=== PATIENT | male | born 1970 | race Caucasian/White ===

== ENCOUNTER 2022-10-18 13:03 | Emergency (ER) | payer MEDICARE, MEDICAID, SELFPAY ==
--- NOTE | ~2022-10-18 | XR_ITS ---
EXAMINATION: XR thoracic spine 3V DATE: 10/18/2022 13:55 INDICATION: Back injury. Fall down stairs. TECHNIQUE: 3 views of thoracic spine were obtained. COMPARISON: None. FINDINGS: There is 10 degrees levoscoliosis of upper thoracic spine. Vertebral body heights and inter vertebral disc heights are normal. There are changes of anterior fusion procedure at C7-T1. Epidural electrodes are noted. IMPRESSION: 1. Upper thoracic levoscoliosis. 2. Anterior fusion procedure at C7-T1. Reviewed, dictated and finalized at location A.
[2022-10-18 13:15] VITALS: BP 143/89; PULSE 104; RESP 20; TEMP 36.8; O2SAT 98
--- NOTE | 2022-10-18 13:44 | ED.GENADULT ---
HPI - General Adult General Chief complaint: Unspecified Stated complaint: Shortness of Breath Time Seen by Provider: 10/18/22 13:45 Source: patient, RN notes reviewed and old records reviewed Mode of arrival: ambulatory Limitations: no limitations History of Present Illness HPI narrative: 52 year old male who presents to [facility] care with complaints of increased shortness of breath for the past 2 weeks with known history of COPD. Patient reports that he quit smoking in 2011 but resumed tobacco use of 1/2 ppd of cigarettes in May of this year. Patient reports that 2 nights ago he went down 4 steps was dizzy then he fell the rest of the way down remaining 3--4 steps landing on his elbows and knees, with complaints of increased thoracic back pain, denies any LOC or hitting head at time of fall. Patient has had cervical fusion in the past. Patient reports that he was seen in the emergency room about one month ago with steroid shot and also breathing treatment and some medications and his symptoms resolved but his symptoms increased this past 2 weeks with no fevers chills or sweats. MD complaint: decreased dyspnea for 2 weeks Onset (ago): day(s) (2 days ago fell down steps) Location: back (thoracic) Radiation: non-radiation Severity: moderate Severity scale (1-10): 6 Treatments prior to arrival: other (used his inhalers as ordered) Related Data Home Medications Medication Instructions Recorded Confirmed albuterol sulfate 90 mcg/actuation inh inhalation DIRECTED 10/18/22 aerosol inhaler (Ventolin HFA) atorvastatin 20 mg tablet 20 mg PO DIRECTED 10/18/22 10/18/22 baclofen 20 mg tablet 20 mg PO DIRECTED 10/18/22 10/18/22 gabapentin 300 mg capsule 300 mg PO DIRECTED 10/18/22 10/18/22 lisinopril 10 mg tablet 10 mg PO DIRECTED 10/18/22 10/18/22 umeclidinium 62.5 mcg-vilanterol 1 ea inhalation DIRECTED 10/18/22 10/18/22 25 mcg/actuation powdr for inhalation (Anoro Ellipta) Allergies Allergy/AdvReac Type Severity Reaction Status Date / Time No Known Allergies Allergy Verified 10/18/22 13:36 Review of Systems Review of Systems: CONSTITUTIONAL: Denies fever, chills, or sweats. EYES: Denies visual changes, redness, or discharge. ENT: Denies rhinorrhea, congestion, sore throat, or otalgia. CARDIOVASCULAR: Denies chest pain, palpitations, or edema. RESPIRATORY: Reports cough or dyspnea with minimal exertion history of copd GASTROINTESTINAL: Denies abdominal pain, nausea, vomiting, or diarrhea. GENITOURINARY: Denies dysuria or hematuria. SKIN: Denies rash or itching. MUSCULOSKELETAL: Reports thoracic back pain, joint pain, or myalgia. NEUROLOGIC: Denies headache, numbness, or weakness. PSYCHIATRIC: Denies anxiety or depression. All systems reviewed & are unremarkable except as noted in HPI and below PMFSH Past Medical History Medical History (Updated 10/18/22 @ 20:16 by Katie Roger NP) COPD (chronic obstructive pulmonary disease) Dystonia Elevated cholesterol Hypertension Spinal cord stimulator status Surgical History Surgical History (Updated 10/18/22 @ 20:01 by Katie Roger NP) History of bilateral carpal tunnel release S/P cervical spinal fusion Social History Social History (Updated 10/18/22 @ 19:58 by Katie Roger NP) Smoking packs per day: 0.5 Smoking cigarettes per day: 10.0 Smoking status: Current every day smoker Tobacco type: cigarettes Alcohol intake: former Alcohol use details: no alcohol for 10 years Substance use type: does not use Living arrangements: with family Gender identity (if verbalized by the patient): Male Comments At time of signature, agree with nursing past medical, surgical, social and family history. There is no relevant family history pertinent to the presenting complaint Exam Narrative: GENERAL: Well-appearing, well-nourished, and in no acute distress. HEAD: Normocephalic, atraumatic. EYES: PERRLA and EOMI. ENT:
== END 2022-10-18 14:30 | disposition home or self-care (01) ==
PROVIDERS: Emergency Provider Registered Nurse; PCP Internal Medicine
DX: J44.1 Chronic obstructive pulmonary disease with (acute) exacerbation (principal); M54.6 Pain in thoracic spine; F17.210 Nicotine dependence, cigarettes, uncomplicated; E78.00 Pure hypercholesterolemia, unspecified; I10 Essential (primary) hypertension; Z96.82 Presence of neurostimulator
CPT/HCPCS: 72072; 81003; 99203; G0463

== ENCOUNTER 2023-11-12 19:18 | Emergency (ER) | payer MEDICARE, MEDICAID, SELFPAY ==
[2023-11-12 19:26] VITALS: BP 155/79; PULSE 63; RESP 20; TEMP 37.1; O2SAT 100
[2023-11-12 19:38] VITALS: BP 155/79; PULSE 63; RESP 20; TEMP 37.1; O2SAT 100
--- NOTE | 2023-11-12 19:44 | ED.SKABFB ---
HPI - Skin/Abscess/Foreign Bdy General Chief complaint: Skin/Abscess/Foreign Body Stated complaint: Right Foot Puncture Wound Time Seen by Provider: 11/12/23 19:31 Source: patient, RN notes reviewed and old records reviewed Mode of arrival: ambulatory Limitations: no limitations History of Present Illness HPI narrative: 53-year-old male to [facility] for complaint puncture wound to right plantar foot. Patient states that he stepped on a tej nail at approximately 1:00 p.m. today. Patient states that he was initially going to be seen recalled that he is not up-to-date on his tetanus shot. Patient endorses mild discomfort with weight-bearing. No active bleeding. Patient has attempted to treat wound at home. Patient denies numbness, tingling, weakness in foot or pertinent medical history. Patient hypertensive in triage. Patient resting in exam room comfortably. Respirations even and nonlabored. Patient in no acute distress. Related Data Home Medications Medication Instructions Recorded Confirmed albuterol sulfate 90 mcg/actuation 2 inh inhalation DIRECTED PRN 10/18/22 11/12/23 aerosol inhaler (Ventolin HFA) Wheezing atorvastatin 20 mg tablet 20 mg PO DIRECTED 10/18/22 11/12/23 baclofen 20 mg tablet 20 mg PO DIRECTED 10/18/22 11/12/23 gabapentin 300 mg capsule 300 mg PO DIRECTED 10/18/22 11/12/23 umeclidinium 62.5 mcg-vilanterol 1 ea inhalation DIRECTED 10/18/22 11/12/23 25 mcg/actuation powdr for inhalation (Anoro Ellipta) Allergies Allergy/AdvReac Type Severity Reaction Status Date / Time tramadol Allergy Vomiting Verified 11/12/23 19:36 Review of Systems Review of Systems: All systems reviewed & are unremarkable except as noted in HPI and below Constitutional: Constitutional: Reports no additional constitutional complaints Eyes: Eyes: Reports no additional eye complaints ENT: Reports system reviewed and no additional complaints, except as documented Cardiovascular: Cardiovascular: Reports no additional cardiovascular complaints, Denies chest pain and Denies dyspnea Respiratory: Respiratory: Reports no additional respiratory complaints, Denies cough and Denies dyspnea Musculoskeletal: Musculoskeletal: Reports no additional musculoskeletal complaints Integumentary/Breasts: Skin/Breast: Reports as per HPI and Reports wounds ( Puncture wound right plantar foot) Neurologic: Reports system reviewed and no additional complaints, except as documented Psychiatric: Psychiatric: Reports no additional psychiatric complaints PMFSH Past Medical History Medical History COPD (chronic obstructive pulmonary disease) Dystonia Elevated cholesterol Hypertension Spinal cord stimulator status Surgical History Surgical History History of bilateral carpal tunnel release S/P cervical spinal fusion Social History Social History Smoking packs per day: 0.5 Smoking cigarettes per day: 10.0 Smoking status: Current every day smoker Tobacco type: cigarettes Alcohol intake: former Alcohol use details: no alcohol for 10 years Substance use type: does not use Living arrangements: with family Gender identity (if verbalized by the patient): Male Comments At the time of my signature, I reviewed and agree with the nursing past medical, surgical, social, and family history. There is no relevant family history pertinent to the patient complaint. Exam Const: General: cooperative, comfortable, no acute distress, alert, awake, poor hygiene, tired appearing and well nourished Nutritional Appearance: well nourished Orientation/consciousness: patient oriented x3 Limitations: no limitations HENMT: Head: normal to inspection Ears: external ears normal Face/Nose/Sinus: Normal external nose present, Normal nares pre
[2023-11-12] MEDS: TETANUS,DIPHTHERIA,AC PERTUSSIS ADULT (0.5 ML) BOOSTRIX IM (19:46)
== END 2023-11-12 19:58 | disposition home or self-care (01) ==
PROVIDERS: Emergency Provider Nurse Practitioner Family; PCP Internal Medicine
DX: S91.331A Puncture wound without foreign body, right foot, initial encounter (principal); W45.0XXA Nail entering through skin, initial encounter; Z23 Encounter for immunization; I10 Essential (primary) hypertension; F17.210 Nicotine dependence, cigarettes, uncomplicated; J44.9 Chronic obstructive pulmonary disease, unspecified; E78.00 Pure hypercholesterolemia, unspecified; Z96.82 Presence of neurostimulator
CPT/HCPCS: 90471; 90715; 99213; G0463

== ENCOUNTER 2024-08-20 19:35 | Emergency (ER) | payer MEDICARE, MEDICAID, SELFPAY ==
--- OUTSIDE RECORDS SUMMARY | 2024-08-20 19:38 | XMS_ITS | Clinical Summary ---
Author Organization [facility] Address [address] [address] Care Team Providers Care Silk Screen Operator Name Role Phone José Antonio Knapp MD Primary Care Provider [phone] Source Comments [facility],non-owned Affiliates and Associated Physician Practices is amultiple site organization consisting of ambulatory clinics and hospital sitesin [place], [place], [place] and [place]. This disclosure is being madepursuant to the Care Everywhere program and may not contain all information available regarding this patient. Last updated 17.[facility] Allergies Active Allergy Reactions Criticality Noted Date Comments Tramadol Vomiting High 10/10/2018 Medications * Be aware that medications may not be up to date on this document. Alwaysverify current medications with the patient. gabapentin (NEURONTIN) 300 MG capsule Take 900 mg by mouth 3 times daily 1 Active REXULTI 3 MG tablet 2 mg once daily 1 Active lisinopril (PRINIVIL; ZESTRIL) 10 MG tablet Take 1 tablet by mouth once daily 1 Active baclofen (LIORESAL) 20 MG tablet Take 20 mg by mouth 4 times daily 1 Active omeprazole (PRILOSEC) 40 MG capsule Take 40 mg by mouth once daily 1 Active sertraline (ZOLOFT) 100 MG tablet 100 mg 2 times daily 1 Active fluticasone propionate (FLONASE) 50 MCG/ACT nasal spray 1-2 SPRAYS BY NASAL ROUTE DAILY. USE IN EACH NOSTRIL DIRECTED. 0 Active budesonide-form oterol (SYMBICORT) 160-4.5 MCG/ACT inhaler TAKE 2 PUFFS BY MOUTH 2 TIMES DAILY. 1 Active albuterol HFA (VENTOLIN HFA) 108 (90 Base) MCG/ACT inhaler TAKE 2 PUFFS BY INHALATION EVERY 4 HOURS NEEDED FOR WHEEZING. 1 Active OXcarbazepine (TRILEPTAL) 600 MG tablet Take 1 tablet by mouth 2 times daily 2 Active atorvastatin (LIPITOR) 20 MG tablet Take 20 mg by mouth once daily 2 Active cyclobenzaprine (FLEXERIL) 10 MG tabletIndicatio ns:Chronic bilateral low back pain without sciatica Take 1 (one) tablet by mouth 3 times daily as needed for Muscle Spasms 60 tablet 1 2 Active Active Problems Problem Noted Date Diagnosed Date Chronic pain disorder 03/23/2015 Failed back surgical syndrome Social History Tobacco Use Types Packs/Day Years Used Date Smoking Tobacco: Former Smokeless Tobacco: Never Tobacco Cessation:Counseling Given: No Alcohol Use Standard Drinks/Week Comments Never 0 (1 standard drink = 0.6 oz pur e alcohol) Sex and Gender Information Value Date Recorded Sex Assigned at Not on file Legal Sex Male 10:33 AM CDT Gender Identity Not on file Sexual Orientation Not on file Last Filed Vital Signs Vital Sign Reading Time Taken Comments Blood Pressure 138/97 06/20/2021 11:40 AM CDT Pulse 76 06/20/2021 11:40 AM CDT Temperature 36.3 C (97.3 F) 06/20/2021 11:40 AM CDT Respiratory Rate 18 05/06/2021 10:53 AM ANALYST PROGRAMMER Oxygen Saturation 100% 06/20/2021 11:40 AM CDT Inhaled Oxygen Concentration - - Weight 102.1 kg (225 lb) 06/20/2021 11:40 AM CDT Height 182.9 cm (6') 06/20/2021 11:40 AM CDT Body Mass Index 30.52 06/20/2021 11:40 AM CDT Plan of Treatment Health Maintenance Due Date Last Done Comments COLOGUARD (AGES 45-75) - COLON CA SCREENING 1970 COLON MONITORING 1970 COLONOSCOPY - COLON CA SCREENING 1970 CT COLONOGRAPHY - COLON CA SCREENING 1970 Colorectal Cancer Screening 1970 FIT - COLON CA SCREENING 1970 FLEX SIG - COLON CA SCREENING 1970 MEDICARE AWV 12 MONTHS 1970 HIV SCREENING 1985 HEPATITIS C SCREENING 05/26/1988 DTAP/TDAP/TD VACCINES (1 - Tdap) 1989 HEPATITIS B VACCINE (1 of 3 - 19+ 3-dose series) 1989 PNEUMOCOCCAL VACCINE 50+ (1 of 1 - PCV) 2020 ZOSTER VACCINE (1 of 2) 2020 COVID-19 VACCINE (3 - season) 2023 02/16/2021, 06/07/2020 DEPRESSION SCREENING 04/02/2024 SCREENING FOR DIABETES 04/21/2024 , 04/21/2021, 03/24/2021 INFLUENZA VACCINE (Season Ended) 2024 02/16/2021, 01/13/2020, 01/16/2019, Additional history exists HIB VACCINE Aged Out No longer eligi ble based on patient's age to complete this topic HPV VACCINE Aged Out No longer eligi ble based on patient's age to complete this topic MENINGOCOCCAL (Group B) VACCINE SHARED DECISION-MAKING Aged Out No longer eligible based on patient's age to complete this topic MENINGOCOCCAL GROUPS A/C/Y/W VACCINE Aged Out No longer eligible based on patient's age to complete this topic Medical Devices Implanted Type Area Manager Book Device Identifier Shelf Expiration Date Model / Serial / Lot Lead Ns 65cm Spc Surescan 3 Clmn 16 Implanted:Qty: 1 on 04/21/2021 by Oscar Caruso MD at [facility] Back [employer] 08/27/2024 [id number] / / [id number] Kit Acc .133in Injex Yumiko Baso4 Biwing Implanted:Qty: 1 on 04/21/2021 by Oscar Caruso MD at [facility] Left: Back [employer] Neurological 06/27/2022 [id number] / / [id number] Nrstm Impl Chrnc Pain Rs2 - [id number] Implanted:Qty: 1 on 04/21/2021 by Oscar Caruso MD at [facility] Left: Back [employer] Inc [id number] / [id number] / Slnt Dura Duraseal Pg Trilysine Amine 5 Implanted:Qty: 1 on 04/21/2021 by Oscar Caruso MD at [facility] Back [employer] Isaak 07/30/2021 [id number] / / [id number] Procedures Procedure Name Priority Date/Time Associated Diagnosis Comments GLUCOSE - POINT OF CARE Routine 04/21/2021 12:30 PM ANALYST PROGRAMMER from Last 3 Months or Most Recently Relevant to Health Maintenance Results * (ABNORMAL) GLUCOSE - POINT OF CARE (04/21/2021 12:30 PM ANALYST PROGRAMMER) [facility] Glucose WB/POC 136(H) 70 - 106 mg/dL 04/21/2021 12:37 PM ANALYST PROGRAMMER [facility] Specimen Type Cap Fingerstick 2021 12:37 PM ANALYST PROGRAMMER [facility] Blood BLOOD SPECIMEN / Unknown 04/21/2021 12:30 PM ANALYST PROGRAMMER 04/21/2021 12:37 PM ANALYST PROGRAMMER Oscar Caruso MD LAB - POINT OF CARE GERARDO FLORES Final Result [facility] [address] [place] [address] from Last 3 Months or Most Recently Relevant to Health Maintenance Insurance MEDICARE MEDICAID - [place] MEDICARE MEDICAID - [facility] Care Teams Silk Screen Operator Relationship Specialty Start Date End Date José Antonio Knapp MD [address] [place] [address] PCP - General Internal Medicine 04/21/21
--- OUTSIDE RECORDS SUMMARY | 2024-08-20 19:38 | XMS_ITS | Encounter Summary ---
Author Organization [facility] Address [address] [place] [address] Phone Care Team Providers Care Instructor Business Education Name Role Phone Marko Fung MD Unavailable [phone] José Antonio Knapp MD Primary Care Provider [phone] Josemanuel Nieves MD Unavailable [phone] Jigna Mills APRN, CNP Unavailable Blake Orta MD Unavailable [phone] Courtney Salcedo MD Unavailable [phone] Oscar Caruso MD Unavailable Ke Barrientos MD Unavailable Reason for Visit * Reason Comments Medication Refill Encounter Details Date Type Department Care Team (Late st Contact Info) Description 09/03/2023 Refill [facility] - Primary Care - [place] [address] [place] [address] José Antonio Knapp MD [address] [place] [address] Medication Refill Social History Tobacco Use Types Packs/Day Years Used Date Smoking Tobacco: Every Day Cigarettes 1 30 Started: 05/30/1983; Last attempted to quit: 05/30/2013 Smokeless Tobacco: Never Alcohol Use Standard Drinks/Week Comments No 0 (1 standard drink = 0.6 oz pur e alcohol) Heavy drinking. Quit 05/2013 PHQ-2 Answer Date Recorded Total Score - Questions 1-9 0 03/04 Sex and Gender Information Value Date Recorded Sex Assigned at Not on file Legal Sex Male 12:12 AM CDT Gender Identity Not on file Sexual Orientation Not on file Occupation Industry Job Start Date Job End Date disabled Not on file Not on file Not on file documented as of this encounter Miscellaneous Notes * Telephone Encounter - Nicola Villa PAC - 09/03/2023 1:09 PM CDT Refill approved. * Telephone Encounter - Leon Werner RN - 09/03/2023 12:13 PM CDT Medication failed the protocol, provider to review and approve the medication order if appropriate. Requested Prescriptions Pending Prescriptions Disp Refills gabapentin (NEURONTIN) 300 MG Capsule [Pharmacy Med Name: GABAPENTIN 300MG CAPSULE] 810 Capsule 0 Sig: TAKE THREE (3) CAPSULES BY MOUTH THREE (3) TIMES DAILY. Not Delegated - Anticonvulsants Excluding Benzodiazepines Protocol Failed - 09/03/2023 12:02 PM Failed - This refill cannot be delegated Passed - Visit with relevant provider in past 12 months or upcoming 90 days Recent Visits Date Type Provider Dept 10/02/22 Office Visit José Antonio Knapp MD [facility] Showing recent visits within past 365 days and meeting all other requirements Future Appointments No visits were found meeting these conditions. Showing future appointments within next 90 days and meeting all other requirements baclofen (LIORESAL) 20 MG Tablet [Pharmacy Med Name: BACLOFEN 20MG TABLET] 360 Tablet 0 Sig: TAKE 1 TABLET BY MOUTH FOUR (4) TIMES DAILY. Not Delegated - Muscle Relaxants Protocol Failed - 09/03/2023 12:02 PM Failed - This refill cannot be delegated Passed - Visit with relevant provider in past 12 months or upcoming 90 days Recent Visits Date Type Provider Dept 10/02/22 Office Visit José Antonio Knapp MD [facility] Showing recent visits within past 365 days and meeting all other requirements Future Appointments No visits were found meeting these conditions. Showing future appointments within next 90 days and meeting all other requirements Signed Prescriptions Disp Refills omeprazole (PriLOSEC) 40 MG CAPSULE DELAYED RELEASE 90 Capsule 0 Sig: TAKE 1 CAPSULE BY MOUTH DAILY. Proton Pump Inhibitors Protocol Passed - 09/03/2023 12:02 PM Passed - Visit with relevant provider in past 12 months or upcoming 90 days Recent Visits Date Type Provider Dept 10/02/22 Office Visit José Antonio Knapp MD [facility] Showing recent visits within past 365 days and meeting all other requirements Future Appointments No visits were found meeting these conditions. Showing future appointments within next 90 days and meeting all other requirements documented in this encounter Plan of Treatment Upcoming Encounters Date Type Department Care Team (Late st Contact Info) Description 09/17/2024 1:30 PM CDT Office Visit [facility] - Primary Care - [place] [address] [place] [address] José Antonio Knapp MD [address] [place] [address] 12/15/2024 1:00 PM CDT Office Visit [facility] - Neurology - [place] [address] [place] [id number] Blake Orta MD [address] [place] [address] documented as of this encounter Visit Diagnoses Diagnosis 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 documented in this encounter Additional Health Concerns Assessment Noted Time PHQ-9 Depression Total Score: 0 03/31/20 22 10:00 AM BOOM CONVEYOR OPERATOR documented as of this encounter Care Teams Instructor Business Education Relationship Specialty Start Date End Date José Antonio Knapp MD [address] [place] [address] PCP - General Internal Medicine 08/24/15 Marko Fung MD [address] [facility] [place] [address] [place] [address] Consulting Physician Psychiatry 08/24/15 Josemanuel Nieves MD [address] [place] [address] Consulting Physician Neurological Surgery 03/20/16 Jigna Mills APRN, ASSOCIATE PROFESSOR OF SURGERY [address] [place] [address] Nurse Practitioner Pain Medicine-Pain Management 06/28/16 Blake Orta MD [address] [place] [address] Consulting Physician Neurology 07/25/18 Courtney Salcedo MD [address] [place] [address] Consulting Physician Neurological Surgery 09/21/20 Oscar Caruso MD [address] [place], [place] [id number] Consulting Physician Neurological Surgery 03/30/21 Ke Barrientos MD [address] [place] [address] Consulting Physician Gastroenterology 04/04/23 4 documented as of this encounter
--- OUTSIDE RECORDS SUMMARY | 2024-08-20 19:38 | XMS_ITS | Encounter Summary ---
Author Organization [facility] Address [address] [place] [address] Phone Care Team Providers Care Sales Promotion Director Name Role Phone Marko Fung MD Unavailable [phone] José Antonio Knapp MD Primary Care Provider [phone] Josemanuel Nieves MD Unavailable [phone] Jigna Mills APRN, CNP Unavailable Blake Orta MD Unavailable Chad Demarco DO Unavailable [phone] Courtney Salcedo MD Unavailable [phone] Oscar Caruso MD Unavailable Ke Barrientos MD Unavailable Reason for Visit * Reason Comments Medication Refill Encounter Details Date Type Department Care Team (Late st Contact Info) Description 01/19/2020 Refill [facility] - Neurology - [place] [address] [place] [address] Blake Orta MD [address] [place] [address] Medication Refill Social History Tobacco Use Types Packs/Day Years Used Date Smoking Tobacco: Former Cigarettes 2 30 0 05/30/1983 - 05/30/2013 Smokeless Tobacco: Never Alcohol Use Standard Drinks/Week Comments No 0 (1 standard drink = 0.6 oz pur e alcohol) Heavy drinking. Quit 05/2013 PHQ-2 Answer Date Recorded PHQ-2 Score 1 12/03/2018 Sex and Gender Information Value Date Recorded Sex Assigned at Not on file Legal Sex Male 12:12 AM CDT Gender Identity Not on file Sexual Orientation Not on file Occupation Industry Job Start Date Job End Date disabled Not on file Not on file Not on file COVID-19 Exposure Response Date Recorded In the last month, have you been in contact with someone who was confirmed or suspected to have Coronavirus / COVID-19? No / Unsure 01/13/2020 10:40 AM CDT documented as of this encounter Plan of Treatment Upcoming Encounters Date Type Department Care Team (Late st Contact Info) Description 09/17/2024 1:30 PM CDT Office Visit [facility] - Primary Care - [place] [address] [place] [address] José Antonio Knapp MD [address] [place] [address] 12/15/2024 1:00 PM CDT Office Visit [facility] - Neurology - [place] [address] [place] [address] Blake Orta MD [address] [place] [address] documented as of this encounter Visit Diagnoses Not on filedocumented in this encounter Additional Health Concerns Infection Onset Date Last Indicated Resolved Time COVID - 19 03/20/2022 03/20/2022 03/30/2022 12:1 9 AM FISHER SEAL Influenza 03/20/2022 03/20/2022 03/27/2022 12:1 9 AM FISHER SEAL COVID - 19 08/12/2022 08/12/2022 08/22/2022 12:1 6 AM CDT Assessment Noted Time PHQ-9 Depression Total Score: 1 10/16/19 19 11:00 AM CDT documented as of this encounter Care Teams Sales Promotion Director Relationship Specialty Start Date End Date José Antonio Knapp MD [address] [place] [address] PCP - General Internal Medicine 08/24/15 Marko Fung MD [address] [place] [address] [place] [address] Consulting Physician Psychiatry 08/24/15 Josemanuel Nieves MD [address] [place] [address] Consulting Physician Neurological Surgery 03/20/16 Jigna Mills APRN, [employer]TER [employer] [address] [place] [address] Nurse Practitioner Pain Medicine-Pain Management 06/28/16 Blake Orta MD [address] [place] [address] Consulting Physician Neurology 07/25/18 Chad Demarco DO [address] [place] [address] Consulting Physician Gastroenterology 09/02/19 1 Courtney Salcedo MD [address] [place] [address] Consulting Physician Neurological Surgery 09/21/20 Oscar Caruso MD [address] [place] [address] Consulting Physician Neurological Surgery 03/30/21 Ke Barrientos MD [address] [place] [address] Consulting Physician Gastroenterology 04/04/23 4 documented as of this encounter
--- OUTSIDE RECORDS SUMMARY | 2024-08-20 19:38 | XMS_ITS | Clinical Summary ---
[facility] Organization [facility] Address [address] [facility], [place] [address] Phone Care Team Providers Care Underwriting Intern Name Role Phone Marko Fung MD Unavailable [phone] José Antonio Knapp MD Primary Care Provider [phone] Josemanuel Nieves MD Unavailable [phone] Jigna Mills [place], [facility] Unavailable Blake Orta MD Unavailable [phone] Courtney Salcedo MD Unavailable [phone] Oscar Caruso MD Unavailable [phone] Allergies Active Allergy Reactions Criticality Noted Date Comments Tramadol Vomiting High 10/10/2018 Medications gabapentin (NEURONTIN) 300 MG CapsuleIndicat ions:Hereditar y spastic paraplegia (HCC) TAKE THREE (3) CAPSULES BY MOUTH THREE (3) TIMES DAILY. 810 Capsule 09/03/19 24 Active Anoro Ellipta 62.5-25 MCG/ACT AEROSOL POWDER, BREATH ACTIVATEDIndic ations:Panlobu lar emphysema (HCC) TAKE 1 PUFF BY INHALATION DAILY. 60 Each 2 03/03/20 25 Active omeprazole (PriLOSEC) 40 MG CAPSULE DELAYED RELEASE Take 1 Capsule by mouth daily. 90 Capsule 1 07/01/19 25 Active cyclobenzaprin e (FLEXERIL) 10 MG Tablet TAKE 1 TABLET BY MOUTH TWO (2) TIMES DAILY NEEDED FOR MUSCLE SPASMS. 30 Tablet 1 07/26/19 25 Active cyclobenzaprin e (FLEXERIL) 10 MG Tablet Take 1 Tablet by mouth 2 times daily as needed for Muscle spasms. 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 Chronic pain syndrome 03/23/2015 Depression 02/09/2015 COPD (chronic obstructive pulmonary disease) Type 2 diabetes mellitus wit hout complication, without long-term current use of insulin Hypertension, essential Mixed hyperlipidemia Seasonal allergic rhinitis Overview (07/25/2018): Spring, fall Resolved Problems Problem Noted Date Diagnosed Date Resolved Date Sacroiliac joint dysfunction of right side 12/09/2018 09/29/2021 Acute kidney injury 10/15/2018 09/02/19 20 Episode of recurrent major d epressive disorder 07/12/2018 09/02/2019 Carpal tunnel syndrome of right wrist 11/30/2015 03/23/2020 Otitis media, acute serous 0 08/24/2015 Paraplegia 09/02/2019 Overview (08/24/2015): Unknown etiology Encounters Date Type Department Care Team Description 07/24[facility]2024 [facility] [place] [address] [place] [address] Eve Mccord APRN, SITE LEADER Medication Refill 07/24/2024 Refill [facility] - [facility] - [place] [address] [place] [address] José Antonio Knapp MD Medication Refill 07/05/2024 [facility] [place] [address] [place] [address] Eve Mccord, YEN, SITE LEADER Medication Refill 06/12/2024 1:00 PM CDT Office Visit [facility] [address] [place] [address] Blake Orta MD Hereditary spastic paraplegia (HCC) (Primary Dx); Cerebral palsy, unspecified type (HCC) Discharge Disposition: Discharged to home or Selfcare 06/12/2024 Travel 06/02/2024 [facility] [place] [address] [place] [address] José Antonio Knapp MD Medication Refill 06/02/2024 [facility] [place] [address] [place] [address] Eve Mccord, YEN, SITE LEADER Medication Refill from Last 3 Months Immunizations Immunization Administration Dates Next Due Covid-19 Vaccine, Vector-nr, [id number], Pf, 0.5 Ml ([employer]) 06/07/2020 Influenza Vaccine greater than 3 yrs 01/16/2019, 12/31/2016,02/01/2015 Influenza Vaccine, Quadrivalent, PF 11/0 05/2022,03/31/2022,02/16/2021,01/12,01/22/2018 Influenza, Seasonal, Injecta ble, Undefined 01/05/2014,04/16/2013 Influenza,Split Virus,Trivalent,Injectable,PF 03/19/2024 PNEUMONIA ADULT IM [id number] 12/16/2015 PUR FLU 3+ YRS PRES FREE QUAD IM 12/16/2015 Pneumococcal Vaccine Adult - 23 Valent 5 Pneumococcal conjugate PCV20 , polysaccharide [id number] conjugate, adjuvant, PF 09/29/2021 TB Skin Test 04/30/2017 TDAP Vaccine 11/12/2023 Zoster Vaccine Recombinant 08/02/2021,12/29/2020 Family History Medical History Relation Name Comments Heart Attack Father Heart Disease Father High Cholesterol Father Hypertension Father Alzheimer's Disease Maternal Grandmother No Known Problems Mother Diabetes Paternal Aunt 1 Diabetes Paternal Aunt 2 Heart Disease Paternal Grandfather Cancer Paternal Grandmother colon Colon Cancer Paternal Grandmother Relation Name Status Comments Father Alive Maternal Grandmother Mother Alive Paternal Aunt 1 Paternal Aunt 2 Paternal Grandfather Paternal Grandmother Social History Tobacco Use Types Packs/Day Years Used Date Smoking Tobacco: Every Day Cigarettes 0.9 35.4 Started: 05/30/1983; Last attempted to quit: 05/30/2013 Smokeless Tobacco: Never Tobacco Cessation:Ready to Q uit: No; Counseling Given: Not Answered Comments:2 cigarettes a day Alcohol Use Standard Drinks/Week Comments Yes 0 (1 standard drink = 0.6 oz pur e alcohol) occassionally Collisionable Utilities Answer Date Recorded In the past 12 months has [employer], gas, oil, or water [employer] threatened to shut off services in your home? No 03/19/2024 Social Connection and Isolat ion Panel [NHANES] Answer Date Recorded In a typical week, how many times do you talk on the phone with family, friends, or neighbors? Three times a week 03/19/2024 How often do you get togethe r with friends or relatives? More than three times a week 03/19/2024 How often do you attend chur or jehovah's witness services? Never 03/19/2024 Do you belong to any clubs o r organizations such as scientology groups, unions, fraternal or athletic groups, or school groups? Yes 03/19/2024 How often do you attend meet ings of the clubs or organizations you belong to? Never 03/19/2024 Are you , , di vorced, , never , or living with a partner? 03/19/2024 AUDIT-C Answer Date Recorded Q1: How often do you have a drink containing alcohol? Never 03/19/2024 Q2: How many drinks containi ng alcohol do you have on a typical day when you are drinking? Patient does not drink Q3: How often do you have si x or more drinks on one occasion? Never 03/19/2024 Overall Financial Resource Strain (CARDIA) Answe r Date Recorded How hard is it for you to pa y for the very basics like food, housing, medical care, and heating? Not hard at all 03/19/2024 PHQ-2 Answer Date Recorded Total Score - Questions 1-9 0 03/04 [facility] - Occupational Stress Questionnaire Answer Date Recorded Do you feel stress - tense, restless, nervous, or anxious, or unable to sleep at night because your mind is troubled all the time - these days? Only a little 03/19/2024 Exercise Vital Sign Answer Date Recorde d On average, how many days pe r week do you engage in moderate to strenuous exercise (like a brisk walk)? 0 days 03/19/2024 On average, how many minutes do you engage in exercise at this level? 10 min 03/19/2024 Hunger Vital Sign Answer Date Recorded Within the past 12 months, y ou worried that your food would run out before you got the money to buy more. Never true 03/19/20 24 Within the past 12 months, t he food you bought just didn't last and you didn't have money to get more. Never true 03/19/2024 PRAPARE - Transportation Answer Date Re corded In the past 12 months, has l ack of transportation kept you from medical appointments or from getting medications? No 03/02 In the past 12 months, has l ack of transportation kept you from meetings, work, or from getting things needed for daily living? No 03/19/2024 Housing Stability Vital Sign Answer Favian e Recorded In the last 12 months, was t here a time when you were not able to pay the mortgage or rent on time? No 03/19/2024 Number of Times Moved in the Last Year Not on fi le 03/19/2024 At any time in the past 12 m [facility], were you homeless or living in a jail (including now)? No 03/19/2024 Sex and Gender Information Value Date Recorded Sex Assigned at Not on file Legal Sex Male 12:12 AM CDT Gender Identity Not on file Sexual Orientation Not on file Occupation Industry Job Start Date Job End Date disabled Not on file Not on file Not on file Last Filed Vital Signs Vital Sign Reading Time Taken Comments Blood Pressure 130/84 06/12/2024 1:09 PM CDT Pulse 76 06/12/2024 1:09 PM CDT Temperature 36.7 C (98 F) 06/12/2024 1:09 PM CDT Respiratory Rate 17 06/12/2024 1:09 PM CDT Oxygen Saturation 98% 03/19/2024 1:39 PM CAD LIBRARIAN Inhaled Oxygen Concentration - - Weight 82.1 kg (181 lb) 06/12/2024 1:09 PM CDT Height 182.9 cm (6') 06/12/2024 1:09 PM CDT Body Mass Index 24.55 06/12/2024 1:09 PM CDT Plan of Treatment Upcoming Encounters Date Type Department Care Team (Late st Contact Info) Description 09/17/2024 1:30 PM CDT Office Visit [facility] - Primary Care - [place] [address] [place] [address] José Antonio Knapp MD [address] [place] [address] 12/15/2024 1:00 PM CDT Office Visit [facility] - Neurology - [place] [address] [place] [address] Blake Orta MD [address] [place] [address] Health Maintenance Due Date Last Done Comments Diabetes: Foot Exam 1970 Hepatitis B Immunization (1 of 3 - 19+ 3-dose series) 1989 Diabetes: Eye Exam 11/02/2019 11/01/2018 Cologuard 2020 Immunochemical Fecal Occult Blood 2020 SARS-COV-2 Immunization ( season) 2023 02/16/2021, 06/07/2020 Diabetes: Nephropathy Screening 09/16/2024 09/17/2023, 08/12/2022, 03/31/2022, Additional history exists Diabetes: Hemoglobin A1c 09/17/2024 024, 09/17/2023, 10/02/2022, Additional history exists Lung Cancer Screening 04/22/2025 04/22/2024, 018 Colonoscopy 04/04/2030 04/04/2023, 02/01, 02/05/2017 Colorectal Cancer Screening 04/04/2030 Td Immunization Every 10 Years (Adults With 1 Tdap) 11/11/2033 11/12/2023 Respiratory Syncytial Virus (RSV) Immunization (Adult) (1 - 1-dose 75+ series) 2045 04/04/2023, 02/01, 02/05/2017 Zoster Immunization Completed 08/02/2021, Pneumococcal Immunization (50+ years) Completed 09/29/2021, 12/16/2015, 04/16/2014 Pneumococcal Immunization Combined Discontinued 09/29/2021, 12/16/2015, 04/16/2014 Hepatitis C Virus (HCV) Screening Completed 09/17/2023 TdaP Immunization Discontinued 11/12/2023 Influenza Immunization Completed , 02/01/2023, 03/31/2022, Additional history exists Human Papillomavirus (HPV) Immunization Aged Out No longer eligible based on patient's age to complete this topic Meningococcal Immunization (ACWY) Aged Out No longer eligible based on patient's age to complete this topic Rotavirus Immunization Aged Out No lo nger eligible based on patient's age to complete this topic Procedures Procedure Name Priority Date/Time Associated Diagnosis Comments CT CHEST SCREENING WO Routine 04/22/2024 2:13 PM CAD LIBRARIAN Personal history of tobacco use, presenting hazards to health HEMOGLOBIN A1C W/ ESTIMATED GLUCOSE Routine 03/19/2024 2:11 PM CAD LIBRARIAN Type 2 diabetes mellitus without complication, without long-term current use of insulin (HCC) CMP (COMPREHENSIVE METABOLIC PANEL) Today 09/17/2023 3:16 PM CDT Hypertension, essential Type 2 diabetes mellitus without complication, without long-term current use of insulin (HCC) HEPATITIS C ANTIBODY Routine 09/17/2023 3:16 PM CDT Encounter for hepatitis C screening test for low risk patient HM DILATED EYE EXAM Routine 11/01/2018 from Last 3 Months or Most Recently Relevant to Health Maintenance Results * CT CHEST SCREENING WO (04/22/2024 2:13 PM CAD LIBRARIAN) Anatomical Region Laterality Modality Chest N/A Computed Tomogra phy 04/22/2024 2:52 PM CAD LIBRARIAN Impressions 04/22/2024 2:54 PM CAD LIBRARIAN IMPRESSION: Grossly stable right middle lobe pulmonary nodule measuring up to 0.5 cm with interval development of a subtle 0.3 cm pulmonary nodule in the posterior right middle lobe, which is likely benign. No definite evidence of a new suspicious pulmonary nodule. Mild emphysematous changes of lungs with scattered mild subsegmental atelectasis and scarring. Scattered mild bronchial wall thickening, which is likely related to chronic bronchitis/bronchiolitis. Scattered mild ground-glass centrilobular airspace opacities in the bilateral lungs, which is probably due to smoking related respiratory bronchiolitis. Lung-RADS category 2: Benign appearance or behavior. Recommendation: Low dose Screening CT of chest in 12 months. Narrative 04/22/2024 2:54 PM CAD LIBRARIAN EXAM DESCRIPTION: CT CHEST SCREENING WO REASON FOR STUDY: Screening CT of the chest in a current smoker with a 35 pack year smoking history. Additional history: None. TECHNIQUE: Low dose CT scan of the chest was performed without intravenous contrast using helical scanning technique. The exam extends from the lung apices through the lung bases. Automatic exposure control was used as a dose optimization technique. NOTE: This study was performed for the specific purposes of lung cancer screening and is not an alternative to diagnostic chest CT. RADIATION DOSE: CT dose index volume (CTDIvol) = 2.54 mGy COMPARISON: 09/29/2017 FINDINGS: SMOKING RELATED LUNG DISEASE: There are mild emphysematous changes of lungs with scattered mild subsegmental atelectasis and scarring. There are scattered mild ground-glass centrilobular airspace opacities in the bilateral lungs, which is probably due to smoking related respiratory bronchiolitis. There is no definite evidence of a pneumothorax. There is scattered mild bronchial wall thickening, which is likely related to chronic bronchitis/bronchiolitis. There is no definite evidence of a focal consolidation or pleural effusion. There are scattered calcified granulomas noted.. LUNG NODULES: There is a stable 0.5 cm pulmonary nodule in the medial right middle lobe (axial image 172). There is interval development of a subtle 0.3 cm pulmonary nodule in the posterior right middle lobe (axial image 198). CORONARY ARTERY CALCIFICATION: Not identified. OTHER: The heart size is normal. There is no definite evidence of pericardial effusion. There are mild atherosclerotic changes of the thoracic aorta. There is dilatation of main pulmonary artery measuring up to 3.8 cm, which is concerning for pulmonary arterial hypertension. There is no definite unenhanced CT evidence of mediastinal, hilar, or axillary lymphadenopathy. There are scattered subcentimeter mediastinal lymph nodes noted with largest measuring 0.7 cm in the right paratracheal region (axial image 106). There is small hiatal hernia. The bilateral adrenal glands are grossly stable and unremarkable. There is a mild dextroscoliotic curvature of the spine with degenerative changes. Postsurgical changes involving the cervical spine are noted. THIS IS AN ELECTRONICALLY VERIFIED FINAL REPORT 04/22/2024 2:52 PM - Electronically signed by Julia Andrade D.O. PS: PS Report ID: [id number] Reading Location: [id number] Procedure Note Julia Andrade DO - 04/22/2024 EXAM DESCRIPTION: CT CHEST SCREENING WO REASON FOR STUDY: Screening CT of the chest in a current smoker with a 35 pack year smoking history. Additional history: None. TECHNIQUE: Low dose CT scan of the chest was performed without intravenous contrast using helical scanning technique. The exam extends from the lung apices through the lung bases. Automatic exposure control was used as a dose optimization technique. NOTE: This study was performed for the specific purposes of lung cancer screening and is not an alternative to diagnostic chest CT. RADIATION DOSE: CT dose index volume (CTDIvol) = 2.54 mGy COMPARISON: 09/29/2017 FINDINGS: SMOKING RELATED LUNG DISEASE: There are mild emphysematous changes of lungs with scattered mild subsegmental atelectasis and scarring. There are scattered mild ground-glass centrilobular airspace opacities in the bilateral lungs, which is probably due to smoking related respiratory bronchiolitis. There is no definite evidence of a pneumothorax. There is scattered mild bronchial wall thickening, which is likely related to chronic bronchitis/bronchiolitis. There is no definite evidence of a focal consolidation or pleural effusion. There are scattered calcified granulomas noted.. LUNG NODULES: There is a stable 0.5 cm pulmonary nodule in the medial right middle lobe (axial image 172). There is interval development of a subtle 0.3 cm pulmonary nodule in the posterior right middle lobe (axial image 198). CORONARY ARTERY CALCIFICATION: Not identified. OTHER: The heart size is normal. There is no definite evidence of pericardial effusion. There are mild atherosclerotic changes of the thoracic aorta. There is dilatation of main pulmonary artery measuring up to 3.8 cm, which is concerning for pulmonary arterial hypertension. There is no definite unenhanced CT evidence of mediastinal, hilar, or axillary lymphadenopathy. There are scattered subcentimeter mediastinal lymph nodes noted with largest measuring 0.7 cm in the right paratracheal region (axial image 106). There is small hiatal hernia. The bilateral adrenal glands are grossly stable and unremarkable. There is a mild dextroscoliotic curvature of the spine with degenerative changes. Postsurgical changes involving the cervical spine are noted. THIS IS AN ELECTRONICALLY VERIFIED FINAL REPORT 04/22/2024 2:52 PM - Electronically signed by Julia Andrade D.O. PS: PS Report ID: [id number] Reading Location: [place] [address] IMPRESSION: Grossly stable right middle lobe pulmonary nodule measuring up to 0.5 cm with interval development of a subtle 0.3 cm pulmonary nodule in the posterior right middle lobe, which is likely benign. No definite evidence of a new suspicious pulmonary nodule. Mild emphysematous changes of lungs with scattered mild subsegmental atelectasis and scarring. Scattered mild bronchial wall thickening, which is likely related to chronic bronchitis/bronchiolitis. Scattered mild ground-glass centrilobular airspace opacities in the bilateral lungs, which is probably due to smoking related respiratory bronchiolitis. Lung-RADS category 2: Benign appearance or behavior. Recommendation: Low dose Screening CT of chest in 12 months. us José Antonio Knapp MD IMG CT ORDERABLES Final R esult * HEMOGLOBIN A1C W/ ESTIMATED GLUCOSE (03/19/2024 2:11 PM CAD LIBRARIAN) Pathologist [facility] HGB-A1C 5.3 4.0 - 6.0 % 03/19/2024 3:37 PM CAD LIBRARIAN [facility] Est Average Glucose 105.4 mg/dL 03/19/2024 3:37 PM CAD LIBRARIAN [facility] Blood Venipuncture / Unknown 03/19/2024 2:11 PM CAD LIBRARIAN 03/19/2024 2:11 PM CAD LIBRARIAN Narrative [facility] - 03/19/2024 3:37 PM CAD LIBRARIAN HEMOGLOBIN A1C: DIABETIC PATIENTS: WELL-CONTROLLED: 6.2 - 7.0 INTERMEDIATE WELL-CONTROLLED: 7.0 - 9.0 POORLY-CONTROLLED: >9.0 José Antonio Knapp MD CHEMISTRY ORDERABLES Melissa l Result Performing Organization Address City/[facility] Co de Phone Number [facility] [address] [place] [address] * HEPATITIS C ANTIBODY (09/17/2023 3:16 PM CDT) [facility] hepatitis C antibody 0.10 <1 S/CO 09/18/2023 3:41 PM CDT [facility] Comment: Signal/Cutoff ratio < 0.79 is Nondetected Signal/Cutoff ratio 0.80-0.99 is Grayzone Signal/Cutoff ratio > 0.99 is Detected Supplemental assays are recommended if signal/cutoff ratio is >/=1.00. Signal/cutoff ratio result >/= 5.00 is 97% predictive of positivity for recombinant immunoblot assay (RIBA) and will be reported to the [place] Department of Public Health as required. Blood Venipuncture / Unknown 09/17/2023 3:16 PM CDT 09/17/2023 3:16 PM CDT José Antonio Knapp MD CHEMISTRY ORDERABLES Melissa l Result Performing Organization Address City/[facility]/ZIP Co de Phone Number [facility] [address] [place] [address], * (ABNORMAL) CMP (COMPREHENSIVE METABOLIC PANEL) (09/17/2023 3:16 PM CDT) SODIUM 143 136 - 145 mmol/L 09/18/2023 9:27 AM CDT [facility] POTASSIUM 5.0 3.5 - 5.1 mmol/L 09/18/2023 9:27 AM CDT [facility] CHLORIDE 106 98 - 107 mmol/L 09/18/2023 9:27 AM CDT [facility] CO2, VENOUS 27 22 - 30 mmol/L 09/18/2023 9:27 AM CDT [facility] ANION GAP 15.0 <18.0 mmol/L 09/18/2023 9:27 AM CDT [facility] GLUCOSE 105(H) 70 - 99 mg/dL 09/18/2023 9:27 AM CDT [facility] BUN 14 8 - 26 mg/dL 09/18/2023 9:27 AM CDT [facility] CREATININE, BLOOD 1.18 0.70 - 1.30 mg/dL 09/18/2023 9:27 AM CDT [facility] BUN/CREATININE RATIO 12 12 - 20 ratio 09/18/2023 9:27 AM CDT [facility] TOTAL PROTEIN 6.9 6.3 - 8.2 g/dL 09/18/2023 9:27 AM CDT [facility] ALBUMIN 4.2 3.5 - 5.0 g/dL 09/18/2023 9:27 AM CDT [facility] A/G RATIO 1.6 1.0 - 2.2 09/18/2023 9:27 AM CDT [facility] CALCIUM 9.8 8.7 - 10.5 mg/dL 09/18/2023 9:27 AM CDT [facility] T BILI 0.5 0.2 - 1.2 mg/dL 09/18/2023 9:27 AM CDT [facility] SGOT (AST) 16 5 - 34 U/L 09/18/2023 9:27 AM CDT [facility] SGPT (ALT) 12 0 - 55 U/L 09/18/2023 9:27 AM CDT [facility] ALKALINE PHOSPHATASE 80 40 - 150 U/L 09/18/2023 9:27 AM CDT [facility] IS THE PATIENT REQUIRED TO BE FASTING? No 09/18/2023 9:27 AM CDT [facility] GFR, ESTIMATED >60 >=60 09/18/2023 9:27 AM CDT [facility] Comment: Creatinine Clearance is the preferred criteria for selecting drug dose adjustments in renally impaired patients. The GFR is provided as additional pertinent clinical information. GFR is reported in mL/min/1.73 sq m. Calculation based on the Chronic Kidney Disease Epidemiology Collaboration (CKD- EPI) equation refit without adjustment for race. GFR, EST. >60 >=60 024 9:27 AM CDT [facility] GFR, EST. NONAFRICAN >60 >=60 09/18/2023 9:27 AM CDT [facility] Blood Venipuncture / Unknown 09/17/2023 3:16 PM CDT 09/17/2023 3:16 PM CDT us José Antonio Knapp MD CHEMISTRY ORDERABLES Melissa l Result Performing Organization Address City/State/[facility] Co de Phone Number [facility] [address] [place] [address] * DILATED EYE EXAM (11/01/2018) us Immanuel Caban OD PROCEDURE/MINOR SURGICAL ORD ERABLES Final Result from Last 3 Months or Most Recently Relevant to Health Maintenance Insurance MEDICARE [place]ICAID [place] Advance Directives * Full Code (Latest Code Status on File) Date Activated Date Inactivated Comments 06/01/2020 8:16 AM 08/12/2022 11:51 AM * Full Code Date Activated Date Inactivated Comments 10/10/2018 5:12 PM 10/11/2018 4:53 PM CPR-Full Rishi atment: FULL ARREST: Attempt Resuscitation/CPR wit intubation and mechanical ventilation. PRE-ARREST: Use entire range of life support measures to stabilize the patient. Care Teams Underwriting Intern Relationship Specialty Start Date End Date José Antonio Knapp MD [address] [place] [address] PCP - General Internal Medicine 08/24/15 Marko Fung MD [address] [place] [address] [place] [address] Consulting Physician Psychiatry 08/24/15 Josemanuel Nieves MD [address] [place] [address] Consulting Physician Neurological Surgery 03/20/16 Jigna Mills APRN, SOFTBALL CORE MOLDER [address] [place] [address] Nurse Practitioner Pain Medicine-Pain Management 06/28/16 Blake Orta MD [address] [place] [address] Consulting Physician Neurology 07/25/18 Courtney Salcedo MD [address] [place] [address] Consulting Physician Neurological Surgery 09/21/20 Oscar Caruso MD [address] [place] [address] Consulting Physician Neurological Surgery 03/30/21
--- OUTSIDE RECORDS SUMMARY | 2024-08-20 19:38 | XMS_ITS | Encounter Summary ---
Author Organization [facility] Address [address] [place] [address] Phone Care Team Providers Care Dining Services Director Name Role Phone Marko Fung MD Unavailable [phone] José Antonio Knapp MD Primary Care Provider [phone] Josemanuel Nieves MD Unavailable [phone] Jigna Mills APRN, CNP Unavailable Blake Orta MD Unavailable Chad Demarco DO Unavailable [phone] Courtney Salcedo MD Unavailable [phone] Oscar Caruso MD Unavailable Ke Barrientos MD Unavailable Reason for Visit * Reason Comments Medication Refill Encounter Details Date Type Department Care Team (Late st Contact Info) Description 12/04/2020 Refill [facility] - Neurology [facility] #2 [place] [address] Blake Orta MD #2 [place] [address] Medication Refill Social History Tobacco Use Types [...] encounter Miscellaneous Notes * Telephone Encounter - Marva Whelan RN - 12/07/2020 8:33 AM CDT . documented in this encounter Plan of Treatment Upcoming Encounters Date Type Department Care Team (Late st Contact Info) Description 09/17/2024 1:30 PM CDT Office Visit [facility] - Primary Care - [place] [address] [place] [address] José Antonio Knapp MD [address] [place] [address] 12/15/2024 1:00 PM CDT Office Visit [facility] - Neurology - [place] [address] [place] [address] Blake Orta MD #2 [place] [address] documented as of this encounter Visit Diagnoses Not on filedocumented in this encounter Additional Health Concerns Infection Onset Date Last Indicated Resolved Time COVID - 19 03/20/2022 03/20/2022 03/30/2022 12:1 9 AM ASPARAGUS CUTTER Influenza 03/20/2022 03/20/2022 03/27/2022 12:1 9 AM ASPARAGUS CUTTER COVID - 19 08/12/2022 08/12/2022 08/22/2022 12:1 6 AM CDT Assessment Noted Time PHQ-9 Depression Total Score: 1 10/16/19 19 11:00 AM CDT documented as of this encounter Care Teams Dining Services Director Relationship Specialty Start Date End Date José Antonio Knapp MD [address] [place] [address] PCP - General Internal Medicine 08/24/15 Marko Fung MD [address] [place] [address] [place] [address] Consulting Physician Psychiatry 08/24/15 Josemanuel Nieves MD [address] [place] [address] Consulting Physician Neurological Surgery 03/20/16 Jigna Mills APRN, DISPATCH COORDINATOR [address] [place] [address] Nurse Practitioner Pain Medicine-Pain Management 06/28/16 Blake Orta MD [address] [place] [address] Consulting Physician Neurology 07/25/18 Chad Demarco DO [address] [place] [address] Consulting Physician Gastroenterology 09/02/19 1 Courtney Salcedo MD [address] [place] [address] Consulting Physician Neurological Surgery 09/21/20 Oscar Caruso MD [address] [place] [address] Consulting Physician Neurological Surgery 03/30/21 Ke Barrientos MD [address] [place] [address] Consulting Physician Gastroenterology 04/04/23 4 documented as of this encounter
--- OUTSIDE RECORDS SUMMARY | 2024-08-20 19:38 | XMS_ITS | Encounter Summary ---
Author Organization [facility] Address [address] [place] [address] Phone Care Team Providers Care Fashion Editor Name Role Phone Marko Fung MD Unavailable [phone] José Antonio Knapp MD Primary Care Provider [phone] Josemanuel Nieves MD Unavailable [phone] Jigna Mills APRN, CNP Unavailable Blake Orta MD Unavailable [phone] Chad Demarco DO Unavailable [phone] Courtney Salcedo MD Unavailable [phone] Oscar Caruso MD Unavailable [phone] Ke Barrientos MD Unavailable Reason for Visit * Reason Comments Medication Refill Encounter Details Date Type Department Care Team (Late st Contact Info) Description 02/10/2021 Refill [facility] [address] [place], [place] [address] José Antonio Knapp MD [address] [place] [address] Medication Refill Social History Tobacco [...] encounter Miscellaneous Notes * Telephone Encounter - Donna Orozco RN - 02/10/2021 10:25 AM HEARING OFFICER Medication approved and signed per standing order protocol. ING OFFICER documented in this encounter Plan of Treatment Upcoming Encounters Date Type Department Care Team (Late st Contact Info) Description 09/17/2024 1:30 PM CDT Office Visit [facility] - Primary Care - [place] [address] [place] [address] José Antonio Knapp MD [address] [place] [address] 12/15/2024 1:00 PM CDT Office Visit [facility] - Neurology [facility] #2 [place] [address] Blake Orta MD [address] [place] [address] documented as of this encounter Visit Diagnoses Not on filedocumented in this encounter Additional Health Concerns Infection Onset Date Last Indicated Resolved Time COVID - 19 03/20/2022 03/20/2022 03/30/2022 12:1 9 AM HEARING OFFICER Influenza 03/20/2022 03/20/2022 03/27/2022 12:1 9 AM HEARING OFFICER COVID - 19 08/12/2022 08/12/2022 08/22/2022 12:1 6 AM CDT Assessment Noted Time PHQ-9 Depression Total Score: 1 10/16/19 19 11:00 AM CDT documented as of this encounter Care Teams Fashion Editor Relationship Specialty Start Date End Date José Antonio Knapp MD [address] [place] [address] PCP - General Internal Medicine 08/24/15 Marko Fung MD [address] [place] [address] [address] [place], [place] [address] Consulting Physician Psychiatry 08/24/15 Josemanuel Nieves MD [address] [place] [address] Consulting Physician Neurological Surgery 03/20/16 Jigna Mills APRN, DISINTEGRATOR OPERATOR [address] [place] [address] Nurse Practitioner Pain Medicine-Pain Management 06/28/16 Blake Orta MD [address] [place] [address] Consulting Physician Neurology 07/25/18 Chad Demarco DO [address] [place] [address] Consulting Physician Gastroenterology 09/02/19 1 Courtney Salcedo MD [address] [place] [address] Consulting Physician Neurological Surgery 09/21/20 Oscar Caruso MD [address] [place] [address] Consulting Physician Neurological Surgery 03/30/21 Ke Barrientos MD [address] [place] [address] Consulting Physician Gastroenterology 04/04/23 4 documented as of this encounter
--- OUTSIDE RECORDS SUMMARY | 2024-08-20 19:38 | XMS_ITS | Encounter Summary ---
Author Organization [facility] Address [address] [place] [address] Phone Care Team Providers Care Linen Supervisor Name Role Phone Marko Fung MD Unavailable [phone] José Antonio Knapp MD Primary Care Provider [phone] Josemanuel Nieves MD Unavailable [phone] Jigna Mills APRN, CNP Unavailable Blake Orta MD Unavailable [phone] Chad Demarco DO Unavailable [phone] Courtney Salcedo MD Unavailable [phone] Oscar Caruso MD Unavailable [phone] Ke Barrientos MD Unavailable Reason for Visit * Reason Comments Medication Refill Encounter Details Date Type Department Care Team (Late st Contact Info) Description 03/07/2021 Refill [facility] [address] [place], [place] [address] José Antonio Knapp MD [address] [place] [address] Medication Refill Social History Tobacco [...] on file documented as of this encounter Plan of Treatment Upcoming Encounters Date Type Department Care Team (Late st Contact Info) Description 09/17/2024 1:30 PM CDT Office Visit [facility] - Primary Care - [place] [address] [place] [address] José Antonio Knapp MD [address] [place] [address] 12/15/2024 1:00 PM CDT Office Visit [facility] Neurology [facility] #2 [place] [address] Blake Orta MD #2 [place] [address] documented as of this encounter Visit Diagnoses Not on filedocumented in this encounter Additional Health Concerns Infection Onset Date Last Indicated Resolved Time COVID - 19 03/20/2022 03/20/2022 03/30/2022 12:1 9 AM NATURAL GAS TRADER Influenza 03/20/2022 03/20/2022 03/27/2022 12:1 9 AM NATURAL GAS TRADER COVID - 19 08/12/2022 08/12/2022 08/22/2022 12:1 6 AM CDT Assessment Noted Time PHQ-9 Depression Total Score: 1 10/16/19 19 11:00 AM CDT documented as of this encounter Care Teams Linen Supervisor Relationship Specialty Start Date End Date José Antonio Knapp MD [address] [place] [address] PCP - General Internal Medicine 08/24/15 Marko Fung MD 4 [facility] [address] [place] [address] Consulting Physician Psychiatry 08/24/15 Josemanuel Nieves MD [address] [place] [address] Consulting Physician Neurological Surgery 03/20/16 Jigna Mills APRN, SERVICE ESTABLISHMENT ATTENDANT [address] [place] [address] Nurse Practitioner Pain Medicine-Pain Management 06/28/16 Blake Orta MD [address] [place] [address] Consulting Physician Neurology 07/25/18 Chad Demarco DO [address] [place] [address] Consulting Physician Gastroenterology 09/02/19 1 Courtney Salcedo MD [address] [place] [address] Consulting Physician Neurological Surgery 09/21/20 Oscar Caruso MD [address] [place] [address] Consulting Physician Neurological Surgery 03/30/21 Ke Barrientos MD [address] [place] [address] Consulting Physician Gastroenterology 04/04/23 4 documented as of this encounter
--- OUTSIDE RECORDS SUMMARY | 2024-08-20 19:38 | XMS_ITS | Encounter Summary ---
Author Organization [facility] Address [address] [place] [address] Phone Care Team Providers Care Tobacco Buyer Name Role Phone Marko Fung MD Unavailable [phone] José Antonio Knapp MD Primary Care Provider [phone] Josemanuel Nieves MD Unavailable [phone] Jigna Mills APRN, CNP Unavailable Blake Orta MD Unavailable Chad Demarco DO Unavailable [phone] Courtney Salcedo MD Unavailable [phone] Oscar Caruso MD Unavailable [phone] Ke Barrientos MD Unavailable Reason for Visit * Reason Comments Medication Refill Encounter Details Date Type Department Care Team (Late st Contact Info) Description 02/23/2020 Refill [facility] [address] [place], [place] [id number] José Antonio Knapp MD [address] [place] [address] Medication Refill Social History Tobacco [...] Telephone Encounter - Donna Orozco RN - 02/23/2020 2:50 PM DOMESTIC VIOLENCE COUNSELOR Medication approved and signed per standing order protocol. STIC VIOLENCE COUNSELOR * Telephone Encounter - Lorene Hill CMA - 02/23/2020 12:49 PM DOMESTIC VIOLENCE COUNSELOR Rerouting STIC VIOLENCE COUNSELOR documented in this encounter Plan of Treatment Upcoming Encounters Date Type Department Care Team (Late st Contact Info) Description 09/17/2024 1:30 PM CDT Office Visit [facility] - Primary Care - [place] [address] [place] [address] José Antonio Knapp MD [address] [place] [address] 12/15/2024 1:00 PM CDT Office Visit [facility] - Neurology - [place] #2 [place] [address] Blake Orta MD #2 [place] [address] documented as of this encounter Visit Diagnoses Not on filedocumented in this encounter Additional Health Concerns Infection Onset Date Last Indicated Resolved Time COVID - 19 03/20/2022 03/20/2022 03/30/2022 12:1 9 AM DOMESTIC VIOLENCE COUNSELOR Influenza 03/20/2022 03/20/2022 03/27/2022 12:1 9 AM DOMESTIC VIOLENCE COUNSELOR COVID - 19 08/12/2022 08/12/2022 08/22/2022 12:1 6 AM CDT Assessment Noted Time PHQ-9 Depression Total Score: 1 10/16/19 11:00 AM CDT documented as of this encounter Care Teams Tobacco Buyer Relationship Specialty Start Date End Date José Antonio Knapp MD [address] [place] [address] PCP - General Internal Medicine 08/24/15 Marko Fung MD [address] [place] [address] [address] [place] [address] Consulting Physician Psychiatry 08/24/15 Josemanuel Nieves MD [address] [place] [address] Consulting Physician Neurological Surgery 03/20/16 Jigna Mills APRN, SERVICE CENTER SPECIALIST [address] [place] [address] Nurse Practitioner Pain Medicine-Pain Management 06/28/16 Blake Orta MD [address] [place] [address] Consulting Physician Neurology 07/25/18 Chad Demarco DO [address] [place] [address] Consulting Physician Gastroenterology 09/02/19 Courtney Salcedo MD [address] [place] [address] Consulting Physician Neurological Surgery 09/21/20 Oscar Caruso MD [address] [place] [address] Consulting Physician Neurological Surgery 03/30/21 Ke Barrientos MD [address] [place] [address] Consulting Physician Gastroenterology 04/04/23 4 documented as of this encounter
--- OUTSIDE RECORDS SUMMARY | 2024-08-20 19:38 | XMS_ITS | Encounter Summary ---
Author Organization [facility] Address [address] [place] [address] Phone Care Team Providers Care Remelt Sugar Boiler Name Role Phone Marko Fung MD Unavailable [phone] José Antonio Knapp MD Primary Care Provider [phone] Josemanuel Nieves MD Unavailable [phone] Jigna Mills APRN, POLYETHYLENE COMBINER Unavailable Blake Orta MD Unavailable Courtney Salcedo MD Unavailable [phone] Oscar Caruso MD Unavailable Reason for Visit * Reason Comments Medication Refill Encounter Details Date Type Department Care Team (Late st Contact Info) Description 07/05/2024 Refill [facility] - Neurology - [place] #[address] [place] [address] Eve Mccord APRN, WOOD MECHANIST #[address] [place] [address] Medication Refill Social History Tobacco Use Types Packs/Day Years Used Date Smoking Tobacco: Every Day Cigarettes 0.9 35.4 Started: 05/30/1983; Last attempted to quit: 05/30/2013 Smokeless Tobacco: Never Comments:2 cigarettes a day Alcohol Use Standard Drinks/Week Comments Yes 0 (1 standard drink = 0.6 oz pur e alcohol) occassionally [facility] Utilities Answer Date Recorded In the past 12 months has e electric, gas, oil, or water company threatened to shut off services in your [...] 03/19/2024 How often do you attend chur ch or latter day services? Never 03/19/2024 Do you belong to any clubs o r organizations such as mandaeism groups, unions, fraternal or athletic groups, or [...] Total Score - Questions 1-9 0 03/04 [facility] [place] of Occupat ional Health - Occupational Stress Questionnaire Answer Date Recorded [...] any time in the past 12 m [facility], were you homeless or living in a fpc (including now)? No 03/19/2024 Sex and Gender [...] Description 09/17/2024 1:30 PM CDT Office Visit [facility] - Primary Care - [place] [address] [place] [address] José Antonio Knapp MD [address] [place] [address] 12/15/2024 1:00 PM CDT Office Visit [facility] - Neurology - [place] [address] [place] [address] Blake Orta MD [address] [place] [address] documented as of this encounter Visit Diagnoses Not on filedocumented in this encounter Additional Health Concerns Assessment Noted Time PHQ-9 Depression Total Score: 0 03/31/20 22 10:00 AM NURSE EPIDEMIOLOGIST documented as of this encounter Care Teams Remelt Sugar Boiler Relationship Specialty Start Date End Date José Antonio Knapp MD [address] [place] [address] PCP - General Internal Medicine 08/24/15 Marko Fung MD [address] [place] [address] [place] [address] Consulting Physician Psychiatry 08/24/15 Josemanuel Nieves MD [address] [place] [address] Consulting Physician Neurological Surgery 03/20/16 Jigna Mills APRN, POLYETHYLENE COMBINER [address] [place] [address] Nurse Practitioner Pain Medicine-Pain Management 06/28/16 Blake Orta MD [address] [place] [address] Consulting Physician Neurology 07/25/18 Courtney Salcedo MD [address] [place] [address] Consulting Physician Neurological Surgery 09/21/20 Oscar Caruso MD [address] [place] [address] Consulting Physician Neurological Surgery 03/30/21 documented as of this encounter
--- OUTSIDE RECORDS SUMMARY | 2024-08-20 19:38 | XMS_ITS | Encounter Summary ---
Author Organization [facility] Address [address] [place] [address] Phone Care Team Providers Care Sanitation Inspector Name Role Phone Marko Fung MD Unavailable [phone] José Antonio Knapp MD Primary Care Provider [phone] Josemanuel Nieves MD Unavailable [phone] Jigna Mills APRN, CNP Unavailable Blake Orta MD Unavailable [phone] Courtney Salcedo MD Unavailable [phone] Oscar Caruso MD Unavailable [phone] Ke Barrientos MD Unavailable Reason for Visit * Reason Comments Medication Refill Encounter Details Date Type Department Care Team (Late st Contact Info) Description 08/23/2021 Refill [facility] - Neurology [facility] #[address] [place] [address] Blake Orta MD #2 [place] [address] Medication Refill Social History Tobacco Use Types Packs/Day Years Used Date Smoking Tobacco: Former Cigarettes 2 30 0 05/30/1983 - 05/30/2013 Smokeless Tobacco: Never Alcohol Use Standard Drinks/Week Comments No 0 (1 standard drink = 0.6 oz pur e alcohol) Heavy drinking. Quit 05/2013 PHQ-2 Answer Date Recorded Total Score - Questions 1-9 0 03/03 Sex and Gender Information Value Date Recorded [...] Description 09/17/2024 1:30 PM CDT Office Visit [facility] - Primary Care - [place] [address] [place] [address] José Antonio Knapp MD [address] [place] [address] 12/15/2024 1:00 PM CDT Office Visit [facility] Neurology [facility] #2 [place] [address] Blake Orta MD #2 [place] [address] documented as of this encounter Visit Diagnoses Not on filedocumented in this encounter Additional Health Concerns Infection Onset Date Last Indicated Resolved Time COVID - 19 03/20/2022 03/20/2022 03/30/2022 12:1 9 AM CAPACITY PLANNING ENGINEER Influenza 03/20/2022 03/20/2022 03/27/2022 12:1 9 AM CAPACITY PLANNING ENGINEER COVID - 19 08/12/2022 08/12/2022 08/22/2022 12:1 6 AM CDT Assessment Noted Time PHQ-9 Depression Total Score: 1 10/16/19 19 11:00 AM CDT documented as of this encounter Care Teams Sanitation Inspector Relationship Specialty Start Date End Date José Antonio Knapp MD [address] [place] [address] PCP - General Internal Medicine 08/24/15 Marko Fung MD [address] [place] [address] [place] [address] [place] [address] Consulting Physician Psychiatry 08/24/15 Josemanuel Nieves MD [address] [place] [address] Consulting Physician Neurological Surgery 03/20/16 Jigna Mills APRN, CMO & PRESIDENT [address] [place] [address] Nurse Practitioner Pain Medicine-Pain Management 06/28/16 Blake Orta MD [address] [place] [address] Consulting Physician Neurology 07/25/18 Courtney Salcedo MD [address] [place] [address] Consulting Physician Neurological Surgery 09/21/20 Oscar Caruso MD [address] [place] [id number] Consulting Physician Neurological Surgery 03/30/21 Ke Barrientos MD [address] [place] [address] Consulting Physician Gastroenterology 04/04/23 4 documented as of this encounter
--- OUTSIDE RECORDS SUMMARY | 2024-08-20 19:38 | XMS_ITS | Encounter Summary ---
Author Organization [facility] Address [address] [place] [address] Phone Care Team Providers Care Equipment Mechanic Name Role Phone Marko Fung MD Unavailable [phone] José Antonio Knapp MD Primary Care Provider [phone] Josemanuel Nieves MD Unavailable Jigna Mills APRN, CNP Unavailable Blake Orta MD Unavailable [phone] Courtney Salcedo MD Unavailable [phone] Oscar Caruso MD Unavailable Ke Barrientos MD Unavailable Reason for Visit * Reason Comments Medication Refill Encounter Details Date Type Department Care Team (Late st Contact Info) Description 07/30/2021 Refill [facility] - Primary Care - [place] [address] [place] [address] José Antonio Knapp MD [address] [place] [address] Medication Refill Social History Tobacco [...] Exposure Response Date Recorded In the last 10 days, have yo u been in contact with someone who was confirmed or suspected to have Coronavirus/COVID-19? No / Unsure 07/11/2021 12:52 PM CDT documented as of this encounter Miscellaneous Notes * Telephone Encounter - Tara Sargent RN - 08/01/2021 9:22 AM CDT Refill request too soon. documented in this encounter Plan of Treatment Upcoming Encounters Date Type Department Care Team (Late st Contact Info) Description 09/17/2024 1:30 PM CDT Office Visit [facility] - Primary Care - [place] [address] [place] [address] José Antonio Knapp MD [address] [place] [address] 12/15/2024 1:00 PM CDT Office Visit [facility] - Neurology [facility] #2 [place] [address] Blake Orta MD #2 [place] [address] documented as of this encounter Visit Diagnoses Diagnosis Mixed hyperlipidemia documented in this encounter Additional Health Concerns Infection Onset Date Last Indicated Resolved Time COVID - 19 03/20/2022 03/20/2022 03/30/2022 12:1 9 AM COMMERCIAL DOOR INSTALLER Influenza 03/20/2022 03/20/2022 03/27/2022 12:1 9 AM COMMERCIAL DOOR INSTALLER COVID - 19 08/12/2022 08/12/2022 08/22/2022 12:1 6 AM CDT Assessment Noted Time PHQ-9 Depression Total Score: 1 10/16/19 19 11:00 AM CDT documented as of this encounter Care Teams Equipment Mechanic Relationship Specialty Start Date End Date José Antonio Knapp MD [address] [place] [address] PCP - General Internal Medicine 08/24/15 Marko Fung MD [address] [facility] [place] [address] Consulting Physician Psychiatry 08/24/15 Josemanuel Nieves MD [address] [place] [address] Consulting Physician Neurological Surgery 03/20/16 Jigna Mills APRN, KENO WRITER/RUNNER [address] [place] [address] Nurse Practitioner Pain Medicine-Pain Management 06/28/16 Blake Orta MD [address] [place] [address] Consulting Physician Neurology 07/25/18 Courtney Salcedo MD [address] [place] [address] Consulting Physician Neurological Surgery 09/21/20 Oscar Caruso MD [address] [place] [address] Consulting Physician Neurological Surgery 03/30/21 Ke Barrientos MD [address] [place] [address] Consulting Physician Gastroenterology 04/04/23 4 documented as of this encounter
--- OUTSIDE RECORDS SUMMARY | 2024-08-20 19:38 | XMS_ITS | Encounter Summary ---
Author Organization [facility] Address [address] [place] [address] Phone Care Team Providers Care Waiter/Waitress Second Class Name Role Phone Marko Fung MD Unavailable [phone] Jos éAntonio Knapp MD Primary Care Provider [phone] Josemanuel Nieves MD Unavailable [phone] Jigna Mills APRN, CNP Unavailable Blake Orta MD Unavailable Courtney Salcedo MD Unavailable [phone] Oscar Caruso MD Unavailable Ke Barrientos MD Unavailable Reason for Visit * Reason Comments Medication Refill Encounter Details Date Type Department Care Team (Late st Contact Info) Description 11/10/2021 Refill [facility] - Neurology [facility] [address] [place] [address] Blake Orta MD [address] [place] [address] Medication Refill Social History Tobacco [...] Description 09/17/2024 1:30 PM CDT Office Visit [facility] - Primary Care - [place] [address] [place] [address] José Antonio Knapp MD [address] [place] [address] 12/15/2024 1:00 PM CDT Office Visit [facility] Neurology [facility] [address] [place] [address] Blake Orta MD [address] [place] [address] documented as of this encounter Visit Diagnoses Not on filedocumented in this encounter Additional Health Concerns Infection Onset Date Last Indicated Resolved Time COVID - 19 03/20/2022 03/20/2022 03/30/2022 12:1 9 AM MARKETING TECHNOLOGY COORDINATOR Influenza 03/20/2022 03/20/2022 03/27/2022 12:1 9 AM MARKETING TECHNOLOGY COORDINATOR COVID - 19 08/12/2022 08/12/2022 08/22/2022 12:1 6 AM CDT Assessment Noted Time PHQ-9 Depression Total Score: 1 10/16/19 19 11:00 AM CDT documented as of this encounter Care Teams Waiter/Waitress Second Class Relationship Specialty Start Date End Date José Antonio Knapp MD [address] [place] [address] PCP - General Internal Medicine 08/24/15 Marko Fung MD [address] [place] [address] [place] [address] [place] [address] Consulting Physician Psychiatry 08/24/15 Josemanuel Nieves MD [address] [place] [address] Consulting Physician Neurological Surgery 03/20/16 Jigna Mills APRN, CIGAR PACKING EXAMINER [address] [place] [address] Nurse Practitioner Pain Medicine-Pain Management 06/28/16 Blake Orta MD [address] [place] [address] Consulting Physician Neurology 07/25/18 Courtney Salcedo MD [address] [place] [address] Consulting Physician Neurological Surgery 09/21/20 Oscar Caruso MD [address] [place] [id number] Consulting Physician Neurological Surgery 03/30/21 Ke Barrientos MD [address] [place] [id number] Consulting Physician Gastroenterology 04/04/23 4 documented as of this encounter
--- OUTSIDE RECORDS SUMMARY | 2024-08-20 19:39 | XMS_ITS | Encounter Summary ---
Author Organization [facility] Address [address] [place] [address] Phone Care Team Providers Care Manager Plant Name Role Phone Marko Fung MD Unavailable [phone] José Antonio Knapp MD Primary Care Provider [phone] Josemanuel Nieves MD Unavailable [phone] Jigna Mills APRN, CNP Unavailable Blake Orta MD Unavailable Chad Demarco DO Unavailable [phone] Courtney Salcedo MD Unavailable [phone] Oscar Caruso MD Unavailable Ke Barrientos MD Unavailable Reason for Visit * Reason Comments Medication Refill Encounter Details Date Type Department Care Team (Late st Contact Info) Description 03/10/2020 Refill [facility] - Neurology - [place] [address] [place] [address] Blake Orta MD [address] [place] [address] Medication Refill Social History Tobacco Use Types [...] Description 09/17/2024 1:30 PM CDT Office Visit [facility] - Primary Care - [place] [address] [place] [address] José Antonio Knapp MD [address] [place] [address] 12/15/2024 1:00 PM CDT Office Visit [facility] Neurology 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 COVID - 19 08/12/2022 08/12/2022 08/22/2022 12:1 6 AM CDT Assessment Noted Time PHQ-9 Depression Total Score: 1 07/16/20 19 11:00 AM CDT documented as of this encounter Care Teams Manager Plant Relationship Specialty Start Date End Date José Antonio Knapp MD [address] [place] [address] PCP - General Internal Medicine 08/24/15 Marko Fung MD 4 [facility] [address] [place] [address] Consulting Physician Psychiatry 08/24/15 Josemanuel Nieves MD [address] [place] [address] Consulting Physician Neurological Surgery 03/20/16 Jigna Mills APRN, GARAGEMAN [address] [place] [address] Nurse Practitioner Pain Medicine-Pain Management 06/28/16 Blake Orta MD [address] [place] [address] Consulting Physician Neurology 07/25/18 Chad Demarco DO [address] [place] [address] Consulting Physician Gastroenterology 09/02/19 1 Courtney Salcedo MD [address] [place] [address] Consulting Physician Neurological Surgery 09/21/20 Oscar Caruso MD [address] [place] [address] Consulting Physician Neurological Surgery 03/30/21 Ke Barrientos MD [address] [place] [address] Consulting Physician Gastroenterology 04/04/23 4 documented as of this encounter
[2024-08-20 19:42] VITALS: BP 151/95; PULSE 110; RESP 16; TEMP 36.1; O2SAT 100
--- NOTE | 2024-08-20 19:51 | ED_ITS ---
HPI - Ear Problem General Chief complaint: Upper Respiratory Infection Stated complaint: Left Ear Pain/Chest Congestion Time Seen by Provider: 08/20/24 19:51 Source: patient Mode of arrival: ambulatory Limitations: no limitations History of Present Illness HPI Narrative: 54-year-old male with history of COPD presented for complaint of sudden onset of left ear pain last night. Endorses feeling off balance and ear fullness. Also reports cough and wheezing more than baseline over the past few days. States he slept most of the day today. denies chest pain, palpitations, nausea, vomiting, diarrhea, fevers or lethargy. Patient has an albuterol inhaler and Anoro. MD Complaint: ear pain Related Data Home Medications ?Medication ?Instructions ?Recorded ?Confirmed ?Last Taken ?Type albuterol sulfate 90 mcg/actuation 2 inh inhalation DIRECTED PRN 10/18/22 11/12/23 Unknown History aerosol inhaler (Ventolin HFA) Wheezing umeclidinium 62.5 mcg-vilanterol 1 ea inhalation DIRECTED 10/18/22 11/12/23 Unknown History 25 mcg/actuation powdr for inhalation (Anoro Ellipta) cyclobenzaprine 10 mg tablet mg 08/20/24 Unknown History omeprazole 40 mg capsule,delayed mg 08/20/24 Unknown History release Allergies Allergy/AdvReac Type Severity Reaction Status Date / Time tramadol Allergy Vomiting Verified 08/20/24 19:51 Review of Systems Review of Systems: CONSTITUTIONAL: Denies malaise, chills, or fever. EYES: Denies visual changes, redness, or discharge. ENT: Denies rhinorrhea, congestion, sinus pain, and sore throat. Reports ear pain CARDIOVASCULAR: Denies chest pain, palpitations, or edema. RESPIRATORY: Denies cough or dyspnea. GASTROINTESTINAL: Denies abdominal pain, nausea, vomiting, diarrhea SKIN: Denies rash or itching. MUSCULOSKELETAL: Denies myalgia. NEUROLOGIC: Denies headache. All systems reviewed & are unremarkable except as noted in HPI and below PMFSH Past Medical History Medical History COPD (chronic obstructive pulmonary disease) Dystonia Elevated cholesterol Hypertension Spinal cord stimulator status Surgical History Surgical History History of bilateral carpal tunnel release S/P cervical spinal fusion Social History Social History Smoking packs per day: 0.5 Smoking cigarettes per day: 10.0 Smoking status: Current every day smoker Tobacco type: cigarettes Alcohol intake: former Alcohol use details: no alcohol for 10 years Substance use type: does not use Living arrangements: with family Gender identity (if verbalized by the patient): Male Comments At time of signature, agree with nursing past medical, surgical, social and family history. There is no relevant family history pertinent to the presenting complaint Exam Narrative: GENERAL: mildly ill appearing; in no acute distress. EYES: conjunctivae clear ENT: Nares clear. Mucous membranes moist. Left TM erythematous, bulging and intact; canal not erythematous, no drainage, no tragal tenderness. Oropharynx not erythematous without lesions. no drooling, no hoarseness, no trismus, uvula midline. NECK: Supple. No lymphadenopathy CHEST: lungs with wheezing throughout, No respiratory distress, speaks in full sentences. HEART: Regular rate and rhythm. No murmur heard. SKIN: Warm, dry, no rash. NEURO: Alert and oriented x3. PSYCH: Normal mood and affect Course Course Emergency Course: Patient is aware of diagnosis, understands and agrees to treatment plan. Anticipatory guidance given. Patient agrees to follow-up as directed and is aware of reasons to seek care at the emergency department. Portions of this record may have been created with voice recognition software Level of Care: Express Care Visit Vital Signs Vital signs: Vital Signs Temperature 97 F L 08/20/24 19:42 Pulse Rate 110 H 08/20/24 19:42 Respiratory Rate 16 08/20/24 19:42 Blood Pressure 151/95 H 08/20/24 19:42 Pulse Oximetry 100 08/20/24 19:42 Oxygen Delivery Room Air 08/20/24 19:42 Temperature 97 F L 08/20/24 19:42 Pulse Rate 102 H 08/20/24 20:09 Respiratory Rate 20 08/20/24 20:09 Blood Pressure 151/95 H 08/20/24 19:42 Pulse Oximetry 100 08/20/24 20:09 Oxygen Delivery Room Air 08/20/24 19:42 Reviewed Medical Decision Making MDM Narrative Medical decision making narrative: discussed physical exam findings consistent with left otitis media and bronchitis. Patient reassessed after albuterol nebulizer treatment. Significant improvement in breathing. Reviewed prescriptions. Advised supportive measures and signs/symptoms to go to the ER. Patient is appropriate for outpatient treatment and follow-up. Differential Diagnosis Differential Diagnosis: Coronavirus, strep pharyngitis, allergic rhinitis, upper respiratory tract infection, sinusitis, rhinosinusitis, nasopharyngitis, viral pharyngitis, otitis media, otitis externa, eustachian tube dysfunction, foreign body, cerumen impaction. Vital Signs Vital Signs: Vital Signs Temperature 97 F L 08/20/24 19:42 Pulse Rate 110 H 08/20/24 19:42 Respiratory Rate 16 08/20/24 19:42 Blood Pressure 151/95 H 08/20/24 19:42 Pulse Oximetry 100 08/20/24 19:42 Oxygen Delivery Room Air 08/20/24 19:42 Temperature 97 F L 08/20/24 19:42 Pulse Rate 102 H 08/20/24 20:09 Respiratory Rate 20 08/20/24 20:09 Blood Pressure 151/95 H 08/20/24 19:42 Pulse Oximetry 100 08/20/24 20:09 Oxygen Delivery Room Air 08/20/24 19:42 Discharge Plan Discharge Clinical Impression: Otitis media, Bronchitis Patient Disposition: Home Condition: Stable Instructions: Antibiotic Form, Ear Infection (ED), Acute Bronchitis (ED) Additional Instructions: LUNGS: Acute bronchitis can be contagious because it is usually caused by infection with a virus or bacteria. It is usually for a few days but you can be contagious for up to one week. Avoid crowds until you do not have a fever and symptoms are improved Take medication as directed for ear and lungs Use your albuterol inhaler every 6 hours for the next 24-48 hours. Recommendations: Flonase spray and Zyrtec (or Claritin/Jael) over the counter Cough syrup may cause drowsiness; avoid driving or take it at night time. Tylenol every 8 hours as needed for pain Symptomatic treatment includes: rest, fluids, and increase humidity of the air at home. Follow up with your primary care provider tomorrow, call to schedule appointment Go to the ER for worsening symptoms or concerns Patient Language: Montserratian Prescriptions: New prednisone 20 mg tablet 20 mg PO DAILY Qty: 12 0RF Rx Instructions: take 3 tablets daily for 2 days, then 2 tablets daily for 2 days then 1 tablet daily for 2 days amoxicillin-pot clavulanate 875-125 mg tablet 1 tablet PO Q12H 7 Days Qty: 14 0RF No Action albuterol sulfate [Ventolin HFA] 90 mcg/actuation HFA aerosol inhaler 2 inh INHALATION DIRECTED PRN (Reason: Wheezing) Anoro Ellipta 62.5-25 mcg/actuation blister with device 1 ea INHALATION DIRECTED cyclobenzaprine 10 mg tablet omeprazole 40 mg capsule,delayed release(DR/EC) Follow-up/Referrals: Aria,José Antonio Gutierrez MD [Primary Care Provider] - Time of Disposition: 20:38
[2024-08-20] MEDS: ALBUTEROL SULFATE NEB 2.5 MG/3 ML INH INHALATION (20:01)
[2024-08-20 20:09] VITALS: PULSE 102; RESP 20; O2SAT 100
== END 2024-08-20 20:42 | disposition home or self-care (01) ==
PROVIDERS: Emergency Provider Nurse Practitioner Family; PCP Internal Medicine
DX: H66.92 Otitis media, unspecified, left ear (principal); J40 Bronchitis, not specified as acute or chronic; F17.210 Nicotine dependence, cigarettes, uncomplicated; J44.9 Chronic obstructive pulmonary disease, unspecified; I10 Essential (primary) hypertension; E78.00 Pure hypercholesterolemia, unspecified; Z96.82 Presence of neurostimulator
CPT/HCPCS: 94640; 99213; G0463